=== PATIENT | female | born 1975 | race Hispanic/Latino ===

== ENCOUNTER 2019-11-12 00:32 | Emergency (ER) | payer BC, OTHER ==
[~2019-11-12] VITALS: Ht 162.6 cm; Wt 76.2 kg
[~2019-11-12 00:32] MED LIST: MELOXICAM7.5 MG PO
--- OUTSIDE RECORDS SUMMARY | 2019-11-12 00:36 | XMS REPORT ---
[facility] Address Unknown Phone Unavailable Care Team Providers Care Hvac R Instructor Name Role Phone Unavailable Unavailable Payers Payer Name Policy Type Policy Number Effective Date Expiration Date Problems This patient has no known problems. Allergies, Adverse Reactions, Alerts Allergy Name Allergy Type Status Severity Reaction(s) Onset Date Inactive Date Treating Clinician Comments adhesive tape DA Active [place] 2016-08-21 00:00:00 Medications This patient has no known medications. Results Test Description Test Time Test Comments Text Results Atomic Results Result Comments [facility] 2019-07-09 15:45:00 RUN DATE: 07/09/19 [place] - Lab PAGE 1 RUN TIME: 1545 Specimen Inquiry RUN USER: INTERFACE PATIENT: EMIR MONTANA LOC: HI U #: [id number] AGE/SX: 44/F ROOM: RE07/07/19REG DR: Germania Puckett MD : 77 BED: DIS: STATUS: [facility] TLOC: SPEC #: [id number] RECD: 07/07/19 STATUS: FREDA ODOM #: [id number] MELO: 07/07/19 DR: Germania Puckett MD ENTERED: 07/07/19 SP TYPE: OVARY OTHR DR: DOES_NOT KNOW ORDERED: GROSS COPIES TO: DOES_NOT KNOW Germania Puckett MD [address] [facility], [address] [address] PROCEDURES: GROSS (07/09/19) TISSUES: 1. LEFT OVARY 2. RIGHT OVARY CLINICAL HISTORY COLLECTION DATE: 07/07/2019 BREAST CANCER FINAL DIAGNOSIS Left ovary, oophorectomy: OVARY WITH A CORPUS LUTEUM NEGATIVE FOR MALIGNANCY Right ovary, oophorectomy: OVARY WITH A FEW SURFACE ADHESIONS NEGATIVE FOR MALIGNANCY DMW/ D [id number] MACROSCOPIC Specimen (1) is received in formalin, labeled with the patient's name, and identified as "left ovary". It consists of a roughly ovoid convoluted talamantes ovary measuring 3.0 x 1.7 x 1.0 cm. Sectioning through the tissue shows an organizing corpus luteum. No focal lesions are seen. Lab Head tissue is submitted as (1). CONTINUED ON NEXT PAGE RUN DATE: 07/09/19 [facility] PAGE 2 RUN TIME: 1545 Specimen Inquiry RUN USER: INTERFACE SP EC #: [id number] PATIENT: EMIR MONTANA #[id number] (Continued) MACROSCOPIC (Continued) Specimen (2) is received in formalin, labeled with the patient's name, and identified as "right ovary". It consists of a convoluted pink-talamantes ovary measuring 3.0 x 2.0 x 1.0 cm. Sectioning through the tissue shows no focal lesions. A textiles sales representative section is submitted as (2). GROSS PERFORMED AT [facility] [address] [place] [address] [phone])[phone] MICROSCOPIC All of the stains, including any controls performed, stain appropriately. MICROSCOPIC PERFORMED AT [facility] [address] [place] [address] [phone] PERFORMING SITE Diagnosis performed at: [facility], [place] [address] [place] [address] --------- Signed SIGNATURE ON FILE Nilam Akins MD 07/09/19 1545 END OF REPORT COMPREHENSIVE METABOLIC PANEL 2019-07-03 14:23:00 SODIUM (test code=NA) 141 mmol/L 136-145 POTASSIUM (test code=K) 3.9 mmol/L 3.5-5.1 CHLORIDE (test code=CL) 108.0 mmol/L 98-107 CARBON DIOXIDE (test code=CO2) 26.0 mmol/L 21-32 ANION GAP (test code=GAP) 10.9 10-20 GLUCOSE (test code=GLU) 79 mg/dL 74-106 BLOOD UREA NITROGEN (test code=BUN) 8 mg/dL 7-18 GLOMERULAR FILTRATION RATE (test code=GFR) > 60 mL/min >=60 Estimated GFR by using Modified MDRD formula.Chronic kidney disease is defined as either kidney damageor GFR <60 mL/min/1.73 m2 for >3 months. CREATININE (test code=CREAT) 0.60 mg/dL 0.55-1.02 Note change in reference range due to change in reagent. BUN/CREATININE RATIO (test code=BUN/CREA) 12.4 10-20 TOTAL PROTEIN (test code=PROT) 8.0 gram/dL 6.4-8.2 ALBUMIN (test code=ALB) 3.5 g/dL 3.4-5.0 GLOBULIN (test code=GLOB) 4.5 gram/dL 2.7-4.2 ALBUMIN/GLOBULIN RATIO (test code=A/G) 0.8 0.75-1.50 CALCIUM (test code=CA) 9.1 mg/dL 8.5-10.1 BILIRUBIN TOTAL (test code=BILT) 1.00 mg/dL 0.0-1.0 SGOT/AST (test code=AST) 10 IUnit/L 15-37 SGPT/ALT (test code=ALT) 16 IUnit/L 12-78 ALKALINE PHOSPHATASE TOTAL (test code=ALKP) 90 IUnit/L 45-117 Note change in reference range due to change in reagent. URINALYSIS [id number] 14:18:00* Test Item Value Reference Range Comments UA COLOR (test code=COLU) YELLOW YELLOW UA APPEARANCE (test code=APPU) CLEAR CLEAR UA GLUCOSE DIPSTICK (test code=DGLUU) NEGATIVE mg/dL NEGATIVE UA BILIRUBIN DIPSTICK (test code=BILU) NEGATIVE NEGATIVE UA KETONE DIPSTICK (test code=KETU) NEGATIVE mg/dL NEGATIVE UA SPECIFIC GRAVITY (test code=SGU) 1.015 1.001-1.035 UA BLOOD DIPSTICK (test code=ELVIN) NEGATIVE NEGATIVE UA PH DIPSTICK (test code=EDENILSON) 7.5 5.0-8.0 UA PROTEIN DIPSTICK (test code=PROU) NEGATIVE mg/dL Neg-15 UA UROBILINIOGEN DIPSTICK (test code=URO) 1 mg/dL (1+) mg/dL 0.0-0.2 UA NITRITE DIPSTICK (test code=ANTHONY) NEGATIVE NEGATIVE UA LEUKOCYTE ESTERASE W REFLEX (test code=LEUUR) NEGATIVE NEGATIVE UA WBC (test code=WBCU) 0-5 per HPF 0-5 UA RBC (test code=RBCU) 0-2 #/HPF 0-5 UA EPITHELIAL CELLS (test code=EPIU) FEW per HPF FEW UA BACTERIA (test code=BACU) FEW #/HPF NONE UA MUCUS (test code=MUCU) FEW #/LPF FEW COMPREHENSIVE METABOLIC [id number] 14:14:00* Test Item Value Reference Range Comments SODIUM (test code=NA) 141 mmol/L 136-145 POTASSIUM (test code=K) 3.9 mmol/L 3.5-5.1 CHLORIDE (test code=CL) 108.0 mmol/L 98-107 CARBON DIOXIDE (test code=CO2) mmol/L 21-32 ANION GAP (test code=GAP) 10-20 GLUCOSE (test code=GLU) mg/dL 74-106 BLOOD UREA NITROGEN (test code=BUN) mg/dL 7-18 GLOMERULAR FILTRATION RATE (test code=GFR) mL/min >=60 CREATININE (test code=CREAT) mg/dL 0.55-1.02 BUN/CREATININE RATIO (test code=BUN/CREA) 10-20 TOTAL PROTEIN (test code=PROT) gram/dL 6.4-8.2 ALBUMIN (test code=ALB) g/dL 3.4-5.0 GLOBULIN (test code=GLOB) gram/dL 2.7-4.2 ALBUMIN/GLOBULIN RATIO (test code=A/G) 0.75-1.50 CALCIUM (test code=CA) mg/dL 8.5-10.1 BILIRUBIN TOTAL (test code=BILT) mg/dL 0.0-1.0 SGOT/AST (test code=AST) IUnit/L 15-37 SGPT/ALT (test code=ALT) IUnit/L 12-78 ALKALINE PHOSPHATASE TOTAL (test code=ALKP) IUnit/L 45-117 URINALYSIS [id number] 14:14:00* Test Item Value Reference Range Comments UA COLOR (test code=COLU) YELLOW UA APPEARANCE (test code=APPU) CLEAR UA BILIRUBIN DIPSTICK (test code=BILU) NEGATIVE UA SPECIFIC GRAVITY (test code=SGU) 1.001-1.035 UA PH DIPSTICK (test code=EDENILSON) 5.0-8.0 UA UROBILINIOGEN DIPSTICK (test code=URO) mg/dL 0.0-0.2 UA NITRITE DIPSTICK (test code=ANTHONY) NEGATIVE UA LEUKOCYTE ESTERASE W REFLEX (test code=LEUUR) NEGATIVE UA WBC (test code=WBCU) 0-5 per HPF 0-5 UA RBC (test code=RBCU) 0-2 #/HPF 0-5 UA EPITHELIAL CELLS (test code=EPIU) FEW per HPF FEW UA BACTERIA (test code=BACU) FEW #/HPF NONE UA MUCUS (test code=MUCU) FEW #/LPF FEW CBC W/AUTO [id number] 13:31:00* Test Item Value Reference Range Comments WHITE BLOOD CELL (test code=WBC) 5.9 K/mm3 4.5-12.5 RED BLOOD CELL (test code=RBC) 4.58 mill/mm3 3.7-5.2 HEMOGLOBIN (test code=HGB) 13.8 gram/dL 11.5-15.5 HEMATOCRIT (test code=HCT) 42.8 % 36.0-46.0 MEAN CELL VOLUME (test code=MCV) 93.4 fL 80-98 MEAN CELL HGB (test code=MCH) 30.1 picogram 27.0-33.0 MEAN CELL HGB CONCETRATION (test code=MCHC) 32.2 gram/dL 33.0-36.0 RED CELL DISTRIBUTION WIDTH (test code=RDW) 14.3 % 11.6-16.2 RED CELL DISTRIBUTION WIDTH SD (test code=RDW-SD) 49.1 fL 37.0-51.0 PLATELET COUNT (test code=PLT) 311 K/mm3 150-450 MEAN PLATELET VOLUME (test code=MPV) 10.2 fL 6.7-11.0 NEUTROPHIL % (test code=NT%) 58.4 % 39.0-69.0 IMMATURE GRANULOCYTE % (test code=IG%) 0.7 % 0.0-5.0 LYMPHOCYTE % (test code=LY%) 27.4 % 25.0-55.0 MONOCYTE % (test code=MO%) 11.3 % 0.0-10.0 EOSINOPHIL % (test code=EO%) 1.5 % 0.0-5.0 BASOPHIL % (test code=BA%) 0.7 % 0.0-1.0 NUCLEATED RBC % (test code=NRBC%) 0.0 % 0-0 NEUTROPHIL # (test code=NT#) 3.47 K/mm3 1.8-7.7 IMMATURE GRANULOCYTE # (test code=IG#) 0.04 x10 3/uL 0-0.03 LYMPHOCYTE # (test code=LY#) 1.63 K/mm3 1.0-5.0 MONOCYTE # (test code=MO#) 0.67 K/mm3 0-0.8 EOSINOPHIL # (test code=EO#) 0.09 K/mm3 0.0-0.5 BASOPHIL # (test code=BA#) 0.04 K/mm3 0.0-0.2 NUCLEATED RBC # (test code=NRBC#) 0.00 K/mm3 0.0-0.1 MANUAL DIFF REQUIRED (test code=MDIFF) NO - XR CHEST 2 [id number] 13:25:00 FAX: Germania Esteban MD [phone] [place]: O St: PRE Name: EMIR CRENSHAW [facility] : [birth year] Age/S: 44/F [address] [facility] Unit #: [id number] Loc: [place] [address] Phys: Germania Puckett MD Acct: [id number] Dis Date: Status: PRE SDC PHONE #: [phone] Exam Date: 07/03/2019 1231 FAX #: [phone] Reason: PRE OP EXAMS: CPT CODE: [id number] XR CHEST 2 V [id number] REASON FOR EXAM: PRE OP Exam Order Date: 07/03/2019 11:35 AM Ordering M.D.: Germania Puckett MD PROCEDURE: - XR CHEST 2 V COMPARISON: 2 view chest x-ray April 12, 2014 FINDINGS: The lungs are hypoinflated with elevation of the right hemidiaphragm. However the lungs are clear. There is no pleural effusion or pneumothorax. Pulmonary va scularity is within normal limits. Cardiomediastinal silhouette is normal in size for technique. The mediastinal contours are within normal limits. Surgical clips projecting over the right breast and right axillary region are unchanged from the previous examination. Bones are wit hin normal limits. The visualized upper abdomen is within no rmal limits. IMPRESSION: Right hemidiaphragm soto vation is unchanged from the prior exam. However the lungs are clear. Location: [facility] at 1325 Reported and signed by: Mario rosas MD CC: Germania Puckett MD Techn ologist: Charity Lynne) Trnscrd Date/Quintin e/By: 07/03/2019 (1402) : By: [email or web address] Orig Print D/T: S: 07/03/2019 (7856) PAGE 1 Signed Report BREAST ULTRASOUND [id number] 17:01:39 - DIAG MAMM BILATERAL PRADEEP CAD DIGITALBILATERAL DIGITAL DIAGNOSTIC MAMMOGRAM 3D/2D WITH CAD: 06/15/2019CLINICAL: Follow up to previous exam. Digital breast to mosynthesis was performed in addition to routine CC and MLO views. Current mamm ographic images were evaluated by either a [employer] M-Vu or a [employer] ImageChecker CAD (computer aided detection system). Comparison is made to exams dated 06/02 mammogram, 12/09/2017 mammogram, and 01/10/2017 mammogram - [facility]-. There are scattered fibroglandular tissues in both breasts. There are post operative findings and biopsy clips in the right breast. No suspicious mass, architectural distortion, malignant type calcification, or lymph node abn ormality detected. INCOMPLETE: ADDITIONAL IMAGING EVALUATION NEEDEDBilateral ul trasound pending for additional evaluation. Resume annual screening mammography in one year. - BREAST ULTRASOUND BILATERALULTRASOUND OF BOTH BREASTS AND BOTH AXILLA: 06/15/2019Comparison is made to exams dated 06/12/2018 mammogram, 018 mammogram, and 01/10/2017 mammogram - [facility]-. Real-time ultrasound of both breasts and both axilla and clinical breast exam were perform ed. No abnormalities were seen sonographically in either axilla. Benign cysts and dilated ducts were seen bilaterally. No solid masses were seen. IMPRESSION : BENIGN There is no sonographic evidence of malignancy. She has a strong famil y history of breast cancer. Patient has been informed that she should have scree nayeli mammogram and supplemental ultrasound in 1 year.Florencia Nguyen M.D. dm/:06/15/2019 17:01:39 copy to: Enrique Montemayor M.D., ph: [phone], fax: [phone] Technologist: Livia Driver , [facility]-FWlette r sent: BIRADS 1-2 Combo FU Letter Mammogram BI-RADS: 0 Incomplete: Additional Imaging Evaluation Needed Ultrasound BI-RADS: 2 BenignDIAG MAMM BILATERAL PRADEEP CAD [id number] 17:01:39 - DIAG MAMM BILATERAL PRADEEP CAD DIGITALBILATERAL DIGITAL DIAGNOSTIC MAMMOGRAM 3D/2D WITH CAD: 06/15/2019CLINICAL: Follow up to previous exam. Digital breast tomosynthesis was performed in addition to routine CC and MLO views. Current mammographic images were evaluated by either a [employer] M-Vu or a [employer] ImageChecker CAD (computer aided detection system). Comparison is made to exams dated 06/12/2018 mammogram, 12/09/2017 mammogram, and 01/10/2017 mammogram - [facility]-. There are scattered fibroglandular tissues in both breasts. There are post operative findings and biopsy clips in the right breast. No suspicious mass, architectural distortion, malignant type calcification, or lymph node abnormality detected. INCOMPLETE: ADDITIONAL IMAGING EVALUATION NEEDEDBilateral ultrasound pending for additional evaluation. Resume annual screening mammography in one year. - BREAST ULTRASOUND BILATERALULTRASOUND OF BOTH BREASTS AND BOTH AXILLA: 06/15/2019Comparison is made to exams dated 06/12/2018 mammogram, 12/09/2017 mammogram, and 01/10/2017 mammogram - [facility]-. Real-time ultrasound of both breasts and both axilla and clinical breast exam were perform ed. No abnormalities were seen sonographically in either axilla. Benign cysts and dilated ducts were seen bilaterally. No solid masses were seen. IMPRESSION : BENIGN There is no sonographic evidence of malignancy. She has a strong famil y history of breast cancer. Patient has been informed that she should have scree nayeli mammogram and supplemental ultrasound in 1 year.Florencia Nguyen M.D. dm/:06/15/2019 17:01:39 copy to: Enrique Montemayor M.D., ph: [phone], fax: [phone] Technologist: Livia Driver , [facility]-FWlette r sent: BIRADS 1-2 Combo FU Letter Mammogram BI-RADS: 0 Incomplete: Additional Imaging Evaluation Needed Ultrasound BI-RADS: 2 Benign
[2019-11-12] MEDS ORDERED: ONDANSETRON HCL 4 MG ORAL DISINTEGRATING TAB ONE (00:59)
[2019-11-12] MEDS ORDERED: ONDANSETRON HCL 4 MG ORAL DISINTEGRATING TAB PO ONE (01:00)
[2019-11-12] MEDS ORDERED: TAMIFLU75 MG PO (01:13)
[2019-11-12] MEDS ORDERED: ONDANSETRON ODT8 MG PO (01:13)
== END 2019-11-12 01:23 | disposition home or self-care (01) ==
LOC: FSED 00:32
DX: R50.9 Fever, unspecified (principal); R05 Cough; J11.1 Influenza due to unidentified influenza virus with other respiratory manifestations; Z85.3 Personal history of malignant neoplasm of breast
CPT/HCPCS: 87400; 99283; Q0162

== ENCOUNTER 2025-06-19 11:01 | Emergency (ER) | payer BC ==
[~2025-06-19] VITALS: Ht 162.6 cm; Wt 72.6 kg
[~2025-06-19 11:01] MED LIST changes: +ONDANSETRON ODT8 MG PO; +TAMIFLU75 MG PO
[2025-06-19 11:31] LABS: BASOPHILS % 0.3 % (0.0-1.0); EOSINOPHILS % 1.2 % (0.0-6.0); LYMPHOCYTES % 30.4 % (18.0-39.1); MONOCYTES % 10.8 % (4.4-11.3); NEUTROPHILS % 57.1 % (38.7-80.0); RED CELL DISTRIBUTION WIDTH 12.7 % (11.7-14.4)
[2025-06-19 11:41] LABS: INR 0.95
[2025-06-19 11:47] LABS: EST GLOMERULAR FILTRATION RATE 110.0 ML/MIN (>=60)
[2025-06-19] MEDS: SODIUM CHLORIDE 0.9% 1000ML 1,000 ML IV STA (11:47)
[2025-06-19] MEDS: DIPHENHYDRAMINE HCL INJ 50 MG/ML VIAL IV ONE (11:47)
[2025-06-19] MEDS: METOCLOPRAMIDE HCL 10 MG/2ML VIAL IV ONE (11:47)
[2025-06-19] MEDS: ACETAMIN/BUTALBITAL/CAFFEINE TAB PO ONE (11:48)
[2025-06-19] MEDS: KETOROLAC TROMETHAMINE 30 MG/ML VIAL IV STA (11:48)
[2025-06-19] MEDS ORDERED: FIORICET 50-301 EACH PO (12:36)
[2025-06-19] MEDS ORDERED: ONDANSETRON ODT4 MG PO (12:36)
[2025-06-19 12:45] VITALS: PULSE 55; RESP 16; TEMP 98
[2025-06-19 12:46] VITALS: BP 110/71; PULSE 55; RESP 16; TEMP 98; O2SAT 100
== END 2025-06-19 12:49 | disposition home or self-care (01) ==
LOC: ER 11:06
DX: R51.9 Headache, unspecified (principal); R11.2 Nausea with vomiting, unspecified; Z85.3 Personal history of malignant neoplasm of breast
CPT/HCPCS: 36415; 70450; 80053; 85025; 85610; 85730; 99284; J1200; J1885; J2765; J7030